=== PATIENT | male | born 1970 | race African-American/Black ===

== ENCOUNTER 2017-12-02 18:17 | Emergency (ER) | payer OTHER ==
[~2017-12-02] VITALS: Ht 177.8 cm; Wt 111.0 kg
[2017-12-02 21:53] LABS: CLARITY URINE CLEAR (CLEAR); COLOR URINE YELLOW (YELLOW); KETONES URINE NEGATIVE (NEGATIVE); LEUKOCYTE ESTERASE URINE 1+ (NEGATIVE); NITRITE URINE NEGATIVE (NEGATIVE); OCCULT BLOOD URINE NEGATIVE (NEGATIVE); PROTEIN URINE NEGATIVE (NEGATIVE); SPECIFIC GRAVITY URINE 1.017 (1.005-1.030); UROBILINOGEN URINE 0.2 E.U./dL (0.2-1.0)
[2017-12-02 21:58] LABS: CHLORIDE 103 mEq/L (98-107)
[2017-12-02 21:59] LABS: BASOPHILS % 0.7 % (0.0-2.0); HEMATOCRIT. 44.2 % (42.0-52.0); HEMOGLOBIN. 14.7 g/dL (14.0-18.0); LYMPHOCYTES % 26.1 % (20.0-50.0); MEAN CORPUSCULAR HEMOGLOBIN 30.4 pg (28.0-32.0); MEAN CORPUSCULAR VOLUME 91.4 fL (80.0-94.0); MEAN PLATELET VOLUME 6.9 fl (7.4-10.4); MONOCYTES % 8.9 % (2.0-8.0); NEUTROPHILS % 63.3 % (40.0-76.0); PLATELET 359 x1000/uL (130-400); RED BLOOD CELL COUNT 4.83 mill/uL (4.7-6.1); RED CELL DISTRIBUTION WIDTH 12.9 % (11.6-14.6)
[2017-12-02] MEDS: SODIUM CHLORIDE 0.9% 1,000 ML IV ONE (22:05)
[2017-12-02 22:06] LABS: CARBON DIOXIDE 30 mEq/L (21-32)
[2017-12-02] MEDS: KETOROLAC 30MG/ML VIAL IV STA (22:09)
[2017-12-02 23:15] VITALS: BP 126/85
== END 2017-12-02 23:40 | disposition home or self-care (01) ==
LOC: ER 19:43
DX: N39.0 Urinary tract infection, site not specified (principal)
CPT/HCPCS: 36415; 80053; 81001; 83690; 85025; 96361; 96374; 99284; J1885; J7030

== ENCOUNTER 2022-06-22 11:55 | Emergency (ER) | payer OTHER ==
[~2022-06-22] VITALS: Ht 180.3 cm; Wt 118.0 kg
[2022-06-22 12:14] VITALS: BP 142/99
[2022-06-22] MEDS ORDERED: CIPHCO RIGHT EAR (12:46)
== END 2022-06-22 13:00 | disposition home or self-care (01) ==
LOC: ER 12:07
DX: H60.91 Unspecified otitis externa, right ear (principal)
CPT/HCPCS: 99281; 99283